=== PATIENT | female | born 1965 | race Caucasian/White ===

== ENCOUNTER 2023-10-27 11:38 | Emergency (ER) | payer OTHER ==
[~2023-10-27] VITALS: Ht 154.9 cm; Wt 68.0 kg
[~2023-10-27 11:38] MED LIST: KETOROLAC TROMETHAMINE 30 MG VIAL ONE
[2023-10-27 11:49] VITALS: BP_SYST 168; PULSE 88; RESP 16; TEMP 97.4; O2SAT 98
[2023-10-27] MEDS: KETOROLAC TROMETHAMINE 30 MG VIAL IM ONE (12:17)
[2023-10-27] MEDS: cloNIDine HCL 0.1 MG TABLET PO ONE (15:17)
[2023-10-27] MEDS: ACETAMINOPHEN 500 MG TABLET PO ONE (15:18)
[2023-10-27] MEDS ORDERED: DICL20GE TP (15:33)
[2023-10-27] MEDS ORDERED: SOM350 PO (15:33)
[2023-10-27] MEDS ORDERED: IBUP-1969 PO (15:33)
[2023-10-27 15:45] VITALS: BP_SYST 150; PULSE 68; RESP 16; TEMP 97.8; O2SAT 96
== END 2023-10-27 15:46 | disposition home or self-care (01) ==
LOC: SED 11:38
DX: E04.1 Nontoxic single thyroid nodule (principal); I10 Essential (primary) hypertension; M54.2 Cervicalgia; R07.9 Chest pain, unspecified; M54.50 Low back pain, unspecified; Z88.8 Allergy status to other drugs, medicaments and biological substances; Z79.899 Other long term (current) drug therapy
CPT/HCPCS: 99285; 70450; 71045; 72110; 73120; 73552; 73560; 72125; 96372; J1885